=== PATIENT | male | born 1965 | race Hispanic/Latino ===

== ENCOUNTER 2024-10-01 11:13 | Emergency (ER) | payer SELFPAY ==
[~2024-10-01] VITALS: Ht 167.6 cm; Wt 63.7 kg
--- NOTE | 2024-10-01 11:19 | ERN ---
ED Note History of Present Illness Stated Complaint: BEE STINGS Chief Complaint: Allergic Reaction Time Seen by MD: 11:15 Dictation: A 59-YEAR-OLD MALE COMING IN FROM HOME WITH COMPLAINTS OF MULTIPLE BEE STINGS TO HIS SCALP AND BACK ARMS ONSET 1 HOUR PRIOR TO ARRIVAL. HE STATES HE WAS WORKING IN HIS YD WHEN HE WAS AROUND SOME BEES AT ATTACKED HIM. NO SOB NO ANGIOEDEMA NO PRIMARY CARE DOCTOR. VOICE IS CLEAR. HE HAS NO PRIMARY CARE DOCTOR Allergies: Coded Allergies: No Known Drug Allergies (Unverified Allergy, Unknown, 10/01/24) Past Medical History RN Note Reviewed/Agreed w/PFSH: Yes Review of System Dictation CONSTITUTIONAL: NEGATIVE EXCEPT FOR HPI HEAD/FACE: NEGATIVE EXCEPT FOR HPI EENT: NEGATIVE EXCEPT FOR HPI RESPIRATORY: NEGATIVE EXCEPT FOR HPI GASTROINTESTINAL/ABDOMINAL: NEGATIVE EXCEPT FOR HPI GENITOURINARY: NEGATIVE EXCEPT FOR HPI MUSCULOSKELETAL: NEGATIVE EXCEPT FOR HPI INTEGUMENTARY: NEGATIVE EXCEPT FOR HPI MULTIPLE BEE STINGS TO SCALP BACK AND ARMS NEUROLOGICAL/PSYCH: NEGATIVE EXCEPT FOR HPI HEMATOLOGIC/LYMPHATIC: NEGATIVE EXCEPT FOR HPI ALL SYSTEMS NEGATIVE, EXCEPT NOTED ABOVE. 13 POINT REVIEW OF SYSTEMS ASSESSED AND ALL NEGATIVE EXCEPT FOR ABOVE. Initial Vital Sign VS Vital Signs Date Time Temp Pulse Resp B/P (MAP) Pulse Ox O2 Delivery O2 Flow Rate FiO2 10/01/24 11:15 98.2 80 18 155/115 97 Room Air 0 10/01/24 11:38 21 Physical Exam Dictation VITAL SIGNS REVIEWED GENERAL APPEARANCE: ALERT, ORIENTED X 3, MILD ACUTE DISTRESS, WELL DEVELOPED, NOURISHED. HEAD AND FACE: NON-TRAUMATIC. MULTIPLE BEE STINGERS NOTED TO BACK SCALP EYES: PERRL, PINK CONJUNCTIVAS, EYELID NO TRAUMA, ANTERIOR CHAMBER WITH ARCUS SENILIS. EARS: PINNAS INTACT AND NO SIGNS OF TRAUMA OR ERYTHEMA EAR CANALS CLEAR AND NO DISCHARGE TM NO ERYTHEMA NOSE: NO DISCHARGE, NO BLEEDING. OROPHARYNX: MOUTH NORMAL, TONGUE PINK, NO ANGIOEDEMA, VOICE IS CLEAR PHARYNX CLEAR,NO ERYTHEMA, TONSILS NO EXUDATES, NO ABSCESSES NOTED, MUCOUS MEMBRANE MOIST NECK: SUPPLE, NON-TENDER, NO THYROMEGALY, NO MASSES, NO JVD, NO BRUITS BREAST:DEFERRED CHEST:NO TENDERNESS, NO CREPITUS, NO PARADOXICAL MOVEMENT, NO RETRACTIONS LUNGS:CLEAR, WELL-VENTILATED, SYMMETRIC, NO RALES, NO WHEEZING, NO RHONCHI, NO STRIDOR, GOOD BREATH SOUNDS BILATERALLY HEART: REGULAR RATE, REGULAR RHYTHM, NO MURMUR, NO GALLOPS VASCULAR: NO PERIPHERAL EDEMA, ABDOMEN: SOFT, POSITIVE BOWEL SOUNDS, NONDISTENDED, NO GUARDING, NONTENDER, NO REBOUND, NO MASSES NO HEPATOMEGALY, NO SPLENOMEGALY, NO REAL'S SIGN, NO HERNIAS. RECTAL: DEFERRED GENITAL: DEFERRED NEUROLOGICAL: NORMAL SPEECH, MOTOR FUNCTION INTACT, SENSORY FUNCTION INTACT MUSCULOSKELETAL: NECK NONTENDER, FULL RANGE OF MOTION, BACK NONTENDER, FULL RANGE OF MOTION, EXTREMITIES: NONTENDER, FULL RANGE OF MOTION SKIN: COLOR PINK, DRY, NO TURGOR, NO RASH, NO LACERATIONS, NO ABRASIONS, NO CONTUSIONS. LYMPHATIC: DEFERRED Results (Laboratory/Radiology) Labs Reviewed?: Yes ED Course ED Course Orders Procedure Category Date Status Time *Nursing CPOE 10/01/24 Transmitted Communication: 11:17 Dexamethasone 4mg/Ml PHA 10/01/24 Complete 1ml Vial (Dexametha 11:30 Diphenhydramine Hcl PHA 10/01/24 Complete (Benadryl Cap) 11:30 Acetaminophen 500mg PHA 10/01/24 Complete Tab (Tylenol 500mg T 11:30 Current Medications Medications (Trade) Dose Ordered Sig/Nikunj Route PRN Reason Start Time Stop Time Status Last Admin Dose Admin Acetaminophen (TYLenol 500MG TAB) 1,000 mg ONCE ONCE PO 10/01/24 11:30 10/01/24 11:45 DC Dexamethasone Sodium Phosphate (dexaMETHasone 4MG/ML 1ML VIAL) 8 mg ONCE ONCE IM 10/01/24 11:30 10/01/24 11:45 DC Diphenhydramine HCl (BENAdryl CAP) 50 mg ONCE ONCE PO 10/01/24 11:30 10/01/24 11:45 DC Vital Signs Date Time Temp Pulse Resp B/P (MAP) Pulse Ox O2 Delivery O2 Flow Rate FiO2 10/01/24 11:38 98.1 71 16 172/75 97 Room Air* 0 21 10/01/24 11:15 98.2 80 18 155/115 97 Room Air 0 1150/PATIENT IS HEMODYNAMICALLY STABLE STINGERS WERE REMOVED BY RN AND PATIENT RECEIVED DECADRON AND BENADRYL. BILATERAL BREATH SOUNDS REMAINED CLEAR NO ANGIOEDEMA. Medical Decision Making MDM MEDICAL DECISION-MAKING BASED ON BEE STING ALLERGY. NO ANAPHYLACTOID INJURY PATIENT GIVEN DECADRON AND BENADRYL WITH THE ALL STINGERS REMOVED. DISCHARGED TO FOLLOW UP WITH HIS PRIMARY CARE DOCTOR. DX & DISP Disposition: Discharge Departure Impression: Primary Impression: Bee sting allergy Condition: Stable Scripts Diphenhydramine HCl (Benadryl) 50 Mg Cap 50 MG PO Q6H for itching/rash, #20 CAP 0 Refills Prov: MYRNA HUMPHREY NP 10/01/24 Additional Instructions: FOLLOW-UP WITH PRIMARY CARE PROVIDER IN 1 TO 2 DAYS. TAKE MEDICATIONS DIRECTED HERE IN THE EMERGENCY ROOM. OKAY TO CONTINUE HOME MEDICATIONS UNLESS OTHERWISE DISCUSSED DURING YOUR VISIT IN THE EMERGENCY ROOM TODAY. RETURN TO YOUR NEAREST EMERGENCY ROOM IF SYMPTOMS WORSEN OR IF THERE IS NO IMPROVEMENT. CALL 911 IF YOU NEED IMMEDIATE ASSISTANCE. TAKE TYLENOL OR MOTRIN [id number] NEEDED AND IF NO CONTRAINDICATIONS ARE PRESENT. INCREASE ORAL HYDRATION. A WOUND CULTURE OR URINE CULTURE WAS ORDERED HERE IN THE EMERGENCY ROOM DEPARTMENT PLEASE FOLLOW-UP WITH PRIMARY CARE PROVIDER AND ADVISE THEM TO GET REPEAT PORTS FROM OUR FACILITY. IF YOU HAD ANY PHILIP WRAP/SPLINTS THAT WERE APPLIED HERE, PLEASE DO NOT REMOVE THEM UNTIL YOU SEE YOUR PRIMARY CARE OR SPECIALTY. GO HOME AND IMMEDIATELY TAKE A WARM SHOWER SCRUB YOUR HEAD WITH SHAMPOO AND WASH HER BODY. TAKE BENADRYL EVERY 6 HOURS NEEDED FOR ALLERGIES. TAKE TYLENOL OR MOTRIN [id number] NEEDED FOR FEVER PAIN. Referrals: SELF,REFERRAL (PCP) Time of Disposition: 11:53 I have reviewed the case, and I agree with, Diagnosis and Plan MYRNA HUMPHREY NP Oct 01, 2024 11:19
[2024-10-01] MEDS ORDERED: DIPH50CA38 PO (11:54)
[2024-10-01 12:38] VITALS: BP 167/81; PULSE 73; RESP 16; TEMP 98.3; O2SAT 97
== END 2024-10-01 12:42 | disposition home or self-care (01) ==
LOC: EDH 11:13
DX: T63.441A Toxic effect of venom of bees, accidental (unintentional), initial encounter (principal); Y92.89 Other specified places as the place of occurrence of the external cause
CPT/HCPCS: 99283; 96372; J1100; Q0163